=== PATIENT | female | born 1945 | race Caucasian/White ===

== ENCOUNTER → 2016-08-15 | Outpatient (CLI) | payer OTHER | LOC: BMCIMAGING 12:58 | PROVIDERS: ATTEND Internal Medicine | DX: N19 Unspecified kidney failure (principal) ==

== ENCOUNTER → 2017-06-12 | Outpatient (CLI) | payer OTHER | LOC: BMCIMAGING 11:13 → EDSTATUS 11:14 | PROVIDERS: ATTEND Orthopaedic Surgery Hand Surgery | DX: M19.012 Primary osteoarthritis, left shoulder (principal) ==

== ENCOUNTER → 2017-06-22 | Outpatient (CLI) | payer OTHER | LOC: FIMAGING 08:53 | PROVIDERS: ATTEND Orthopaedic Surgery Hand Surgery | DX: Z01.818 Encounter for other preprocedural examination (principal); M25.812 Other specified joint disorders, left shoulder; M25.412 Effusion, left shoulder; M75.92 Shoulder lesion, unspecified, left shoulder ==